=== PATIENT | male | born 1995 | race Two or more races ===

== ENCOUNTER 2024-12-27 15:50 | Emergency (ER) | payer OTHER ==
[~2024-12-27] VITALS: Ht 152.4 cm; Wt 117.9 kg
[2024-12-27 19:32] LABS: BASO % 0.7 % (0.1-1.2); EOS # 0.59 (0.04-0.54); EOS % 7.3 % (0.7-7.0); LYMPH # 2.75 (1.18-3.74); LYMPH % 33.9 % (19.3-53.1); MEAN PLATELET VOLUME 9.10 fl (9.4-12.4); MONO # 1.21 (0.24-0.82); NEUT # 3.48 (1.56-6.13); NEUT % 43.0 % (34.0-71.1); RED CELL DISTRIBUTION WIDTH 14.0 % (11.6-14.4)
[2024-12-27 19:36] LABS: MONO % 14.9 % (4.7-12.5)
[2024-12-27 19:58] LABS: COVID-19 AG NEGATIVE (NEGATIVE)
[2024-12-27] MEDS ORDERED: ACETAMINOPHEN500 M1 PO (21:59)
[2024-12-27] MEDS ORDERED: ZYRTEC10 M3 PO (21:59)
[2024-12-27] MEDS ORDERED: GILTUSS COUGH-118 M1 PO (21:59)
== END 2024-12-27 22:29 | disposition home or self-care (01) ==
LOC: ER 15:50
PROVIDERS: Preventive Medicine Public Health & General Preventive Medicine
DX: B34.9 Viral infection, unspecified (principal); Z88.0 Allergy status to penicillin; Z20.822 Contact with and (suspected) exposure to COVID-19